=== PATIENT | female | born 1985 | race Caucasian/White ===

== ENCOUNTER 2016-04-18 00:59 | Emergency (ER) | payer OTHER ==
[~2016-04-18] VITALS: Ht 160 cm; Wt 113.6 kg
[2016-04-18 01:19] VITALS: BP 129/79; PULSE 98; RESP 20; O2SAT 96
[2016-04-18 01:50] LABS: BASOPHILS % (AUTO) 0.4 % (0-3); EOSINOPHILS % (AUTO) 1.7 % (0-5); MONOCYTES % (AUTO) 6.9 % (4-12); Mean Corpuscular Hemoglobin 28.8 pg (27.0-35.0); Mean Corpuscular Volume 87.7 fL (81-100); NEUTROPHILS % (AUTO) 63.1 % (40-74); Platelet Count 343 bil/L (150-400)
[2016-04-18 02:10] LABS: Magnesium 1.8 mg/dL (1.6-2.6)
--- NOTE | 2016-04-18 03:43 | ED.REPORT ---
HPI-Abd Pain F Under 40 Date of Service Apr 18, 2016 ED Provider: Alex Goyal MD 30 year old female with a history of ectopic x2, and cholecystectomy presents to the ED complaining of severe RLQ abdominal pain that awakened her from sleeping at 22:00 last night. Associated symptom of nausea. She does not voice any further medical complaints. Patient is currently trying to get . Nursing Notes Stated Complaint: FEMALE ABDOMINAL PAIN Chief Complaint: Female Abdominal Pain Nursing Notes Reviewed: Yes Allergies: Coded Allergies: Penicillins (Verified Allergy, Severe, HIVES,VOMITING, 04/18/16) General Time Seen by MD: 03:29 Chief Complaint Abdominal pain Hx Obtained From: Patient Arrived By: Walk-in Sudden in Onset?: Yes Onset Occurred: 5 - 8 hours ago (6) Symptom Duration: Since onset Location: : RLQ Quality: Painful Severity: Current: Moderate Severity: Maximum: Moderate Pertinent Negative: Pt denies other symptoms Sexual History / Control: Reports Pt is sexually active Similar Sx Previous: Yes Past Medical History Past Surgical History Ectopic x2 Reports: Cholecystectomy Smoking History Current Every Day Smoker, Light Tobacco Smoker Social History Alcohol Use: "Social" Drug Use: THC Ambulatory Status Independent Review of Systems Constitutional: Denies: Chills, Fever Respiratory: Denies: Non-productive cough, Shortness of breath GI: Reports: Abdominal pain, Nausea, Denies: Constipation, Diarrhea Female: Denies: Dysuria, Hematuria Complete sys rev & neg: except as marked. Physical Exam Initial Vital Signs Vital Signs (First) Date Time Temp Pulse Resp B/P Pulse Ox O2 Delivery O2 Flow Rate FiO2 04/18/16 01:19 36.4 98 20 129/79 96 Room Air Initial VS: Reviewed, Vital signs normal Head / Eyes: Atraumatic, Normocephalic Neck: Supple, Non-tender, Full range of motion Extremities: Vascular intact, Neuro intact, No swelling, No tenderness Skin: Warm, Dry, No cyanosis Neurologic: Alert, Oriented, Nonfocal General/Constitutional: Awake, Alert, Well developed, Well nourished Appearance / Presentation: Positive: Obese Respiratory / Chest: Breath sounds NL, Breath sounds = bilat, No respiratory distress, No rales, No rhonchi, No wheezing Cardiovascular: Heart rate NL, Regular rhythm, Heart sounds NL, Peripheral circulation NL Abdomen: Soft, No guarding, No rebound Tenderness/Guarding/Rebound: Positive: Tender RLQ... (Moderate) Back: Inspection NL, Non-tender, No CVA tenderness Interpretation & Diagnostics Lab Results Interpretation Result Diagram: 04/18/16 0430 04/18/16 0430 Test 04/18/16 01:39 04/18/16 02:00 04/18/16 04:30 04/18/16 05:11 Hold Leary Top Tube Received (Received) Hold Urine Received (Received) White Blood Count 12.1th/mm3 (3.8-10.1) Red Blood Count 4.98mil/mm3 (3.90-5.20) Hemoglobin 14.4g/dL (12.0-15.6) Hematocrit 43.0% (35.0-46.0) Mean Corpuscular Volume 86.3fL (81-100) Mean Corpuscular Hemoglobin 28.9pg (27.0-35.0) Mean Corpuscular Hemoglobin Concent 33.5% (32.0-37.0) Red Cell Distribution Width 14.2% (12.3-15.4) Platelet Count 336bil/L (150-400) Neutrophils (%) (Auto) 59.7% (40-74) Lymphocytes (%) (Auto) 30.0% (14-46) Monocytes (%) (Auto) 8.0% (4-12) Eosinophils (%) (Auto) 1.5% (0-5) Basophils (%) (Auto) 0.5% (0-3) Sodium Level 138mEq/L (134-144) Potassium Level 4.1mEq/L (3.5-5.2) Chloride Level 101mEq/L (97-108) Carbon Dioxide Level 22mmol/L (18-29) Blood Urea Nitrogen 18mg/dL (6-20) Creatinine 0.55mg/dL (0.57-1.00) Estimat Glomerular Filtration Rate 183mL/min (>59) Glucose Level 119mg/dL (60-99) Calcium Level 8.8mg/dL (8.5-10.1) Magnesium Level 1.8mg/dL (1.6-2.6) Total Bilirubin 0.2mg/dL (0.0-1.2) Aspartate Amino Transf (AST/SGOT) 24U/L (0-50) Alanine Aminotransferase (ALT/SGPT) 36U/L (0-32) Alkaline Phosphatase 94U/L (25-150) Total Protein 7.0g/dL (6.4-8.4) Albumin 3.8g/dL (3.4-5.0) Lipase 28U/L (13-60) Urine Color Yellow (YELLOW) Urine Appearance Clear (CLEAR,HAZY) Urine pH 5.5 (5.0-8.0) Urine Specific [place] >1.030 (1.003-1.035) Urine Protein Negativemg/dL (NEG,TRACE) Urine Glucose (UA) Negativemg/dL (NEGATIVE) Urine Ketones Negativemg/dL (NEGATIVE) Urine Occult Blood Negative (NEGATIVE) Urine Nitrite Negative (NEGATIVE) Urine Bilirubin Negative (NEGATIVE) Urine Urobilinogen Normalmg/dL (NORMAL) Urine Leukocyte Esterase Negative (NEGATIVE) Urine RBC 3-10/hpf (0-2) Urine WBC 0-5/hpf (0-5) Urine Epithelial Cells Many/hpf (NONE-MOD) Urine Crystals None seen (NONE SEEN) Urine Bacteria Few/hpf (NONE-FEW) Urine Hyaline Casts None/lpf (NONE) Urine Granular Casts None seen (NONE SEEN) Urine Waxy Casts None seen (NONE SEEN) Urine Red Blood Cell Casts None seen (NONE SEEN) Urine White Blood Cell Casts None seen (NONE SEEN) Urine Mucus Present (None Seen) Urine Trichomonas None seen (NONE SEEN) Urine Yeast None (NONE SEEN) Urinalysis Comment None Urine Culture Reflexed Not indicated Lab Results Interpretation: Mild white blood count elevation, mild transaminase elevation. No evidence hematuria. Normal lipase. Re-Eval/Medical Decision Med Decision/Clinical Course 30-year-old female who was initially evaluated by me. She had sudden onset of right lower quadrant abdominal pain. Labs show mild elevation of her white blood count in one of her transaminases. Lipase is normal. There is no hematuria. Her test is negative. Gallbladder disease, appendicitis, and ovarian cyst pathology all are in the differential. Her care is being turned over at change of shift to Dr. Efren Mar. He will make disposition based on abdominal ultrasound results. Counseled Regarding: Diagnosis Discharge & Departure Shift Change Sign-Out Patient Care Transferred: Yes Discussed Complaint(s): Yes Imaging Studies: Ordered, not yet done Primary Impression: Abdominal pain Abdominal location: right lower quadrant Qualified Code: R10.31 - Right lower quadrant pain Discharge Condition All VS Reviewed: Yes Referrals: Law Ledesma MD (PCP) Care Transferred to: Dr. Mar Care Transferred at: 06:35 [employer] Attestation Portions of this note were transcribed by Izzy Zaidi. I, Dr. Goyal, personally performed the history, physical exam and medical decision-making; I reviewed and confirmed the accuracy of the information in the transcribed note. Signed by: Sherry Brown. 04/18/2016, *time* copies to: Law Ledesma MD, Howard L MD Apr 18, 2016 03:43 IZZY ZAIDI Apr 18, 2016 03:48
[2016-04-18] MEDS ORDERED: 0.9% Sodium Chloride 1,000 ML IV ONE (03:44)
[2016-04-18] MEDS: HYDROmorphone 0.5 mg/0.5 mL iSecure Syringe IVPUSH PRN ×6 (04:15→14:00)
[2016-04-18] MEDS: Ondansetron 2 mg/mL 2 mL Inj IVPUSH PRN ×2 (04:15→09:08)
[2016-04-18 04:58] LABS: BASOPHILS % (AUTO) 0.5 % (0-3); EOSINOPHILS % (AUTO) 1.5 % (0-5); Mean Corpuscular Hemoglobin 28.9 pg (27.0-35.0); Mean Corpuscular Volume 86.3 fL (81-100); NEUTROPHILS % (AUTO) 59.7 % (40-74); Platelet Count 336 bil/L (150-400)
[2016-04-18 05:24] LABS: Magnesium 1.8 mg/dL (1.6-2.6)
[2016-04-18 06:01] VITALS: BP 150/94; PULSE 89; RESP 16; O2SAT 98
[2016-04-18 06:37] LABS: APPEARANCE,URINE CLEAR (CLEAR,HAZY); COLOR,URINE YELLOW (YELLOW); OCCULT BLOOD,URINE NEGATIVE (NEGATIVE); PH,URINE 5.5 (5.0-8.0); UROBILINOGEN,URINE NORMAL (NORMAL)
--- NOTE | 2016-04-18 08:59 | DRSVH ---
PROCEDURE: US ABDOMEN INDICATIONS: severe RLQ abdominal pain TECHNIQUE: Real-time scanning was performed of the abdominal and retroperitoneal organs, with image documentatio n. COMPARISON: [facility], US, ABDOMEN SONOGRAM, 02/01/2011, 2:53. FINDINGS: Liver length: 18.74 cm Gallbladder Wall Thickness: Previously resected CHD: 6.60 mm CBD: 9.70 mm Spleen length: 10.52 cm Right kidney length: 10.87 cm Left kidney length: 11.10 cm Aorta(Proximal): 2.15 cm Aorta(Mid): 1.98 cm Aorta(Distal): 1.73 cm RCIA: Not well-seen due to bowel gas LCIA: Not well-seen due to bowel gas Liver: Liver is normal in size and homogeneous in echotexture, and prominently diffusely hyperechoic consistent with fatty infiltration. There appears to be a 3 cm cyst at the capsular margin of the r ight liver. Gallbladder: Previously resected. Biliary ducts: Intrahepatic bile ducts are non-dilated. Extrahepatic bile duct caliber is normal. Normal is 6-7 mm or less in diameter, or 10 mm or less post-cholecystectomy. Pancreas: Visualized portions of the pancreas are sonographically normal. Spleen: Spleen is normal in size and homogeneous in echotexture. Kidneys: Kidneys are normal in size and echotexture. No hydronephrosis or nephrolithiasis. No stephen d masses. Aorta: Visualized aorta is normal in caliber at less than 3 cm. Iliacs: Not seen due to bowel gas IVC: Intrahepatic inferior vena cava is patent. Miscellaneous: No free abdominal fluid. IMPRESSION: Prior cholecystectomy. Subcapsular cyst right hepatic lobe incidentally noted measuring approximately 1.5 x 2.5 x 3.0 cm. Liver echotexture is diffusely prominently hyperechoic consistent with fatty infiltration. This reduces quality of visualization through the liver, but the patient al so is of large body habitus in this further diminishes quality of visualization. The iliac arteries cannot be seen as a result. Depending on the clinical status followed by CT scanning may be warrante d. Dictated by: Kit Yu M.D. on 04/18/2016 at 8:57 Approved by: Kit Yu M.D. on 04/18/2016 at 8:57
--- NOTE | 2016-04-18 09:03 | DRSVH ---
PROCEDURE: US PELVIC SONOGRAM + TRANSVAGINAL SONOGRAM INDICATIONS: pain TECHNIQUE: Real-time scanning was performed of the pelvic organs, with image documentation. Additional endovagi nal scanning was necessary due to incomplete visualization of the adnexal and endometrial structures by transabdominal scanning. COMPARISON: [facility], US, US PELVIC+TRANSVAG, 08/17/2015, 7:16. FINDINGS: (orthogonal measurements) Uterus size: 4.5 x 4.5 x 7.7, anteverted Endometrium thickness: 9.0 mm Right ovary size: 3.0 x 2.7 x 2.2 cm, with a 1.4 cm simple cyst within. Left ovary size: 3.9 x 2.1 x 2.2 cm, without cystic or solid mass or adjacent inflammatory free fluid . There is, however, a previously identified parovarian structure on the left that appears to contai n fluid, and measures currently 4.9 x 3.0 x 3.0 cm and previously measured 9.4 x 5.7 x 3.9 cm. Chron ic hydrosalpinx would be suspected Transabdominal scanning: Limited scanning through the kidneys shows no hydronephrosis. No pathologi c free abdominal or pelvic fluid. Endovaginal scanning: No additional lesions seen. Uterus: Uterus is normal in size and appearance. Endometrium is within normal physiologic limits. Ovaries: Within normal physiologic limits. See comments above regarding left parovarian fluid fille d structure smaller than on the prior study from 08/17/15. IMPRESSION: Normal-appearing uterus. Normal appearing right ovary. Left ovary appears free of infla mmatory change. There is no suspicion for torsion bilaterally. What appears to be a left parovarian cyst or hydropyosalpinx has diminished in size from the comparison study in August of last year. It no w has a maximal dimension of 4.9 x 3.0 x 3.0 cm. Dictated by: Kit Yu M.D. on 04/18/2016 at 9:01 Approved by: Kit Yu M.D. on 04/18/2016 at 9:01
[2016-04-18 09:21] VITALS: BP 130/87; PULSE 74; RESP 18; O2SAT 93
[2016-04-18 11:23] VITALS: BP 122/71; PULSE 75; RESP 15; O2SAT 100
[2016-04-18] MEDS ORDERED: Ondansetron 2 mg/mL 2 mL Inj IVPUSH ONE (12:55)
--- NOTE | 2016-04-18 12:59 | DRSVH ---
PROCEDURE: CT ABDOMEN AND PELVIS WITH CONTRAST ([id number]) INDICATIONS: abd pain TECHNIQUE: After the administration of intravenous contrast, 5 mm thick sections acquired from the diaphragm to the symphysis. 5 mm coronal and sagittal reformats were acquired. For radiation dose reduction, the following was used: automated exposure control, adjustment of mA and/or kV according to patient siz e. COMPARISON: None. FINDINGS: Image quality: Excellent. ABDOMEN: Lung bases: Lung bases are clear. Heart size is normal. Solid organs: Liver hepatic steatosis is present. The spleen has normal in size and enhancement. Ga llbladder has been removed. Biliary system is non dilated. Pancreas enhances normally. No adrenal nodules. Kidneys demonstrate normal size and enhancement. There is a minimal appearance of right hyd ronephrosis with a punctate calcification at the right ureterovesicular junction. Peritoneum and bowel: Bowel loops are nonobstructed. There is a mild appearance of lipomatous hypert rophy of the descending colon also into the distal terminal ileum. There is no surrounding inflammato ry change. No priors are available for comparison. Nodes and vessels: No retroperitoneal or mesenteric adenopathy by size criteria. Aorta and inferior vena cava are normal in size. Miscellaneous: No ventral hernias. PELVIS: Genitourinary: Bladder wall thickness is normal. Bilateral ovarian cysts are present. Miscellaneous: No inguinal hernias or adenopathy. Bones: No suspicious bony lesions. No vertebral body compression fractures. IMPRESSION: 1. Punctate right ureterovesicular calcification with minimal right hydronephrosis. 2. An overall appearance of lipomatous hypertrophy of the ascending colon and terminal ileum is prese nt without definitive surrounding pericolonic inflammation. This is suspected to be related to sequel a of chronic inflammation, possibly from inflammatory bowel disease. Recommend clinical correlation a nd followup as indicated. Dictated by: Uma Amin M.D. on 04/18/2016 at 12:57 Approved by: Uma Amin M.D. on 04/18/2016 at 12:57
[2016-04-18] MEDS ORDERED: OXYC-388 PO (13:43)
[2016-04-18] MEDS ORDERED: ONDA8TAB10 PO (13:43)
[2016-04-18 14:03] VITALS: BP 148/82; PULSE 101; O2SAT 98
== END 2016-04-18 14:02 | disposition home or self-care (01) ==
LOC: SED 00:59
DX: R10.31 Right lower quadrant pain (principal); N20.1 Calculus of ureter; F17.200 Nicotine dependence, unspecified, uncomplicated; Z88.0 Allergy status to penicillin
CPT/HCPCS: 36415; 74177; 76700; 76830; 76856; 80053; 81000; 81025; 83690; 83735; 85025; 96361; 96374; 96375; 96376; 99285; J1170; J2405; J7030; Q9967